=== PATIENT | female | born 1980 | race African-American/Black ===

== ENCOUNTER 2017-09-01 23:49 | Emergency (ER) | payer MEDICAID ==
[2017-09-02] MEDS: ACETAMINOPHEN/HYDROcodone 325 MG/5 MG TAB PO (00:52)
[2017-09-02] MEDS: IBUPROFEN 600 MG TAB PO (00:52)
== END 2017-09-02 01:23 | disposition home or self-care (01) ==
LOC: NEPD 23:49
DX: K08.89 Other specified disorders of teeth and supporting structures (principal); F17.200 Nicotine dependence, unspecified, uncomplicated
CPT/HCPCS: 99283